=== PATIENT | male | born 2000 | race Two or more races ===

== ENCOUNTER 2023-09-07 18:53 | Emergency (ER) | payer SELFPAY ==
[~2023-09-07] VITALS: Ht 198.1 cm; Wt 76.1 kg
[2023-09-07 20:24] VITALS: BP 118/62; PULSE 68; RESP 17; TEMP 98.3; O2SAT 100
[2023-09-07] MEDS: TETANUS-DIPTH-ACEL PERTUSSIS 0.5ML SYR Tdap IM ONE (21:50)
[2023-09-07] MEDS: LIDOCAINE 1% HCL (LOCAL ANESTH.) INJ 20ML MDV IJ ONE (21:51)
== END 2023-09-07 21:59 | disposition home or self-care (01) ==
LOC: ER 18:53
DX: S61.411A Laceration without foreign body of right hand, initial encounter (principal); W45.8XXA Other foreign body or object entering through skin, initial encounter; Y93.89 Activity, other specified; Y92.89 Other specified places as the place of occurrence of the external cause; Y99.8 Other external cause status
CPT/HCPCS: 12002; 90471; 90715; J2001

== ENCOUNTER 2023-09-10 11:54 | Emergency (ER) | payer SELFPAY ==
[~2023-09-10] VITALS: Ht 198.1 cm; Wt 100.0 kg
[2023-09-10 13:20] VITALS: BP 150/89; PULSE 95; RESP 20; TEMP 98.9; O2SAT 99
== END 2023-09-10 13:28 | disposition home or self-care (01) ==
LOC: ER 11:54
DX: S61.411D Laceration without foreign body of right hand, subsequent encounter (principal); X58.XXXD Exposure to other specified factors, subsequent encounter